=== PATIENT | female | born 1980 | race African-American/Black ===

== ENCOUNTER 2018-05-27 08:50 | Emergency (ER) | payer OTHER ==
[~2018-05-27] VITALS: Ht 170.2 cm; Wt 60.0 kg
[2018-05-27 08:54] VITALS: BP 131/91
[2018-05-27] MEDS ORDERED: DICLOFENAC50 MG PO (09:16)
[2018-05-27] MEDS ORDERED: FLEXERIL PO (09:16)
== END 2018-05-27 09:25 | disposition home or self-care (01) ==
LOC: ED 08:50
DX: M54.6 Pain in thoracic spine (principal); M54.5 Low back pain; G89.29 Other chronic pain